=== PATIENT | female | born 1995 | race Caucasian/White ===

== ENCOUNTER 2023-02-25 20:20 | Emergency (ER) | payer MEDICAID, OTHER ==
[~2023-02-25] VITALS: Ht 165.1 cm; Wt 49.8 kg
[~2023-02-25 20:20] MED LIST: NO HOME MEDS
[2023-02-25 20:34] VITALS: BP 131/101; PULSE 75; TEMP 98.6; O2SAT 100
[2023-02-25 20:54] VITALS: RESP 17
--- NOTE | 2023-02-25 20:56 | NUR ---
PT AIRWAY PATENT, BREATHING UNLABORED AND EVEN. RADIAL RIGHT PULSE 76.
--- NOTE | 2023-02-25 21:02 | NUR ---
AUGUST JUDGE NOTIFIED FOR REVIEW OF ASSESSMENTS.
[2023-02-26] MEDS ORDERED: LIDOcaine 1% W/epiNEPHrine 1:100,000 20ml vial IJ ONE (01:10)
[2023-02-26] MEDS ORDERED: TETanus/Pertussis (Acell)/Diphther VAC/PF (Tdap-Adult) 0.5ml syringe IMVAC ONE (01:15)
== END 2023-02-26 02:07 | disposition home or self-care (01) ==
LOC: ER 20:22
DX: S81.812A Laceration without foreign body, left lower leg, initial encounter (principal); X58.XXXA Exposure to other specified factors, initial encounter; Y93.89 Activity, other specified; Y92.89 Other specified places as the place of occurrence of the external cause; Y99.8 Other external cause status
CPT/HCPCS: 12002; 90471; 90715; 99283; J7030; A6446; A6449